=== PATIENT | female | born 1960 | race Caucasian/White ===

== ENCOUNTER 2019-03-18 10:22 | Emergency (ER) | payer BC ==
[2019-03-18] MEDS ORDERED: TORAdol 30 mg Injection IM ONE (10:50)
--- NOTE | 2019-03-18 10:54 | ERPHSYRPT ---
- History of Present Illness Time Seen by Provider: 03/18/19 10:42 Source: patient Exam Limitations: no limitations Patient Subjective Stated Complaint: low back pain that radiates down both legs and to her feet Triage Nursing Assessment: Pt walked into the ER with a stable slow gait, hypertensive, pulses normal, rates pain 04/21, took sleeping pill at 0900 this AM to try to help her get some rest, very restless in the bed, pain began on Tuesday, did not contact family doctor, no other issues Physician History: 58-year-old white female arrives with complaint of pain in the low back radiating to both legs symptoms since Tuesday 6 days ago. Patient states she feels like she pushed too much stuff around at work. No fevers no urinary symptoms. Past medical history includes depression, ADHD, chronic pain. Past surgical history includes cholecystectomy and carpal tunnel Timing/Duration: day(s) (6 days) Severity: moderate Modifying Factors: Improves With: movement Associated Symptoms: No nausea, No vomiting, No abdominal pain, No shortness of breath, No heartburn, No diaphoresis, No cough, No chills, No chest pain, No fever, No headaches, No loss of appetite, No malaise, No rash, No syncope, No seizure, No weakness Allergies/Adverse Reactions: egg Allergy (Mild, Verified 03/18/19 10:39) Hives milk Allergy (Mild, Verified 03/18/19 10:39) Hives morphine Allergy (Mild, Verified 03/18/19 10:39) Rash tomato [Tomato] Allergy (Mild, Verified 03/18/19 10:39) Hives Home Medications: Fluvoxamine Maleate [Luvox Cr] 150 mg PO HS 06/14/14 [History] Methylphenidate HCl [Ritalin] 20 mg PO DAILY 06/14/14 [History] Zolpidem Tartrate [Ambien] 10 mg PO HS 06/14/14 [History] Buspirone HCl [Buspar] 15 mg PO DAILY 03/18/19 [History] Escitalopram Oxalate 10 mg [Lexapro 10 MG] 20 mg PO DAILY 03/18/19 [History] Zolpidem Tartrate 10 mg PO DAILY 03/18/19 [History] - Review of Systems Constitutional: No Fever, No Chills Eyes: No Symptoms Ears, Nose, & Throat: No Symptoms Respiratory: No Cough, No Dyspnea Cardiac: No Chest Pain, No Edema, No Syncope Abdominal/Gastrointestinal: No Abdominal Pain, No Nausea, No Vomiting, No Diarrhea Genitourinary Symptoms: No Dysuria Musculoskeletal: Back Pain, Injury (possibly from moving items at work), No Neck Pain, No Deformity, No Fall, No Joint Redness, No Joint Pain, No Joint Swelling, No Myalgias Skin: No Rash Neurological: No Dizziness, No Focal Weakness, No Sensory Changes Psychological: No Symptoms Endocrine: No Symptoms All Other Systems: Reviewed and Negative - Past Medical History Pertinent Past Medical History: Yes Neurological History: Other ENT History: No Pertinent History Cardiac History: No Pertinent History Respiratory History: Asthma Endocrine Medical History: No Pertinent History Musculoskeletal History: No Pertinent History GI Medical History: No Pertinent History History: No Pertinent History Psycho-Social History: Attention Deficit Disorder, Depression, Other Female Reproductive Disorders: No Pertinent History - Past Surgical History Past Surgical History: Yes Neuro Surgical History: No Pertinent History Cardiac: No Pertinent History Respiratory: No Pertinent History Gastrointestinal: Cholecystectomy Genitourinary: No Pertinent History Musculoskeletal: No Pertinent History, Orthopedic Surgery Female Surgical History: No Pertinent History Other Surgical History: CARPAL TUNNEL, facial surgery, right femur, torn meniscus, bilateral ankles - Social History Smoking Status: Former smoker Exposure to second hand smoke: No Drug Use: none Patient Lives Alone: No - Female History Hx Now: No - Nursing Vital Signs Nursing Vital Signs: Initial Vital Signs Temperature 98.1 F 03/18/19 10:27 Pulse Rate 69 03/18/19 10:27 Blood Pressure 168/84 03/18/19 10:27 O2 Sat by Pulse Oximetry 97 03/18/19 10:27 Pain Scale Pain Intensity [] 8 Pain Intensity 8 - Physical Exam General Appearance: mild distress, alert Eye Exam: PERRL/EOMI, eyes nml inspection Ears, Nose, Throat Exam: normal ENT inspection, TMs normal, pharynx normal, moist mucous membranes Neck Exam: normal inspection, non-tender, supple, full range of motion Respiratory Exam: normal breath sounds, lungs clear, No respiratory distress Cardiovascular Exam: regular rate/rhythm, normal heart sounds, normal peripheral pulses, capillary refill <2 sec Gastrointestinal/Abdomen Exam: soft, normal bowel sounds, No tenderness, No mass Back Exam: normal range of motion, 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 (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), No CVA tenderness Extremity Exam: normal inspection, normal range of motion, pelvis stable Neurologic Exam: alert, oriented x 3, cooperative, health education assistant II-XII nml as tested, normal mood/affect, nml cerebellar function, nml station & gait, sensation nml, No motor deficits Skin Exam: normal color, warm, dry, No rash Lymphatic Exam: No adenopathy SpO2 Interpretation: normal (97%) SpO2: 97 - Course Nursing assessment & vital signs reviewed: Yes - Radiology Exams L-Spine X-ray Interpretation: Interpreted by me (no acute fractures or subluxation) Ordered Tests: Active Orders 24 hr Category Date Time Status LUMBAR LIMITED (2 OR 3 VIEWS) Stat Exams 03/18/19 11:05 Taken UA W/RFX UR CULTURE Stat Lab 03/18/19 11:12 Completed Medication Summary Discontinued Medications Generic Name Dose Route Start Last Admin Trade Name Freq PRN Reason Stop Dose Admin Ketorolac Tromethamine 60 mg 03/18/19 10:50 03/18/19 11:11 Toradol 30 Mg Injection IM 03/18/19 10:51 60 mg STAT ONE Administration Ketorolac Tromethamine Confirm 03/18/19 11:08 Toradol 30 Mg Injection Administered 03/18/19 11:09 Dose 60 mg .ROUTE .STK-MED ONE Lab/Rad Data: Laboratory Results 03/18/19 Range/Units 11:12 Urine Color YELLOW (YELLOW) Urine Appearance CLEAR (CLEAR) Urine pH 8.0 (5-6) Ur Specific [place] 1.018 (1.005-1.025) Urine Protein NEGATIVE (Negative) Urine Ketones NEGATIVE (NEGATIVE) Urine Blood NEGATIVE (0-5) Elio/ul Urine Nitrite NEGATIVE (NEGATIVE) Urine Bilirubin NEGATIVE (NEGATIVE) Urine Urobilinogen NEGATIVE (0-1) mg/dL Ur Leukocyte Esterase NEGATIVE (NEGATIVE) Urine WBC (Auto) NONE (0-5) /HPF Urine RBC (Auto) NONE (0-2) /HPF U Epithel Cells (Auto) NONE (FEW) /HPF Urine Bacteria (Auto) NONE (NEGATIVE) /HPF Urine Mucus (Auto) SLIGHT (NEGATIVE) /HPF Urine Culture Reflexed NO (NO) Urine Glucose NEGATIVE (NEGATIVE) mg/dL - Progress Progress: improved Progress Note: 03/18/19 12:03 Patient feeling better after Toradol injection. X-ray lumbar spine (my read) no acute fractures or subluxation. Will discharge patient with [place] and Flexeril. Patient denies any substance abuse inspect was queried. - Departure Departure Disposition: Home Clinical Impression: Back pain Qualifiers: Back pain location: low back pain Chronicity: acute Back pain laterality: bilateral Sciatica presence: with sciatica Sciatica laterality: bilateral sciatica Qualified Code(s): M54.42 - Lumbago with sciatica, left side; M54.41 - Lumbago with sciatica, right side Condition: Fair Critical Care Time: No Referrals: MEGHAN GROSS MD [Primary Care Provider] - Instructions: Low Back Pain (DC) Additional Instructions: Return home. Cold packs to area 24-48 hours. Cyclobenzaprine as directed. [place] as directed. Followup with your family Dr. her company if symptoms worse, no better in 48 hours, or persist longer than 72 hours. Return for acute distress or for severe symptoms. Prescriptions: Hydrocodone/APAP 5-325 Tab^^^ [[place] 5-325 Tablet^^^] 1 tab PO Q6HPRN PRN #10 tablet MDD 6 PRN Reason: back pain Cyclobenzaprine HCl 10 mg [Cyclobenzaprine 10 MG] 10 mg PO TID #15 tablet
[2019-03-18] MEDS ORDERED: TORAdol 30 mg Injection ONE (11:08)
[2019-03-18 11:26] LABS: Appearance CLEAR (CLEAR); Bilirubin NEGATIVE (NEGATIVE); Blood NEGATIVE Ery/ul (0-5); Glucose NEGATIVE (NEGATIVE); Ketones NEGATIVE (NEGATIVE); Leukocyte Esterase NEGATIVE (NEGATIVE); Mucus SLIGHT /HPF (NEGATIVE); Nitrite NEGATIVE (NEGATIVE); Protein,Urine Dip NEGATIVE (Negative); Specific Gravity 1.018 (1.005-1.025); Urobilinogen NEGATIVE mg/dL (0-1)
[2019-03-18 12:13] VITALS: BP 134/81; PULSE 60; O2SAT 95
[2019-03-18] MEDS ORDERED: NORCO 5/325 MG ONE (12:18)
[2019-03-18] MEDS ORDERED: NORCO 5/325 MG PO ONE (12:19)
--- NOTE | 2019-03-18 21:47 | XRAY ---
Indication: Back pain radiating down legs, left greater than right. Comparison: None 3 views of the lumbar spine demonstrates 5 lumbar vertebral segments with minimal levoscoliosis centered at L4, mild osteopenia, mild L2-L3 anterior endplate spurring, mild aortic calcifications, cholecystectomy clips, and mild diffuse scattered colonic fecal debris. No other bony, articular, or soft tissue abnormalities.
== END 2019-03-18 12:25 | disposition home or self-care (01) ==
LOC: ED 10:22
DX: M54.41 Lumbago with sciatica, right side (principal); M54.42 Lumbago with sciatica, left side
CPT/HCPCS: 72100; 81001; 96372; 99284; J1885; A9270-GY